=== PATIENT | male | born 1960 | race Two or more races ===

== ENCOUNTER 2020-12-24 10:12 | Emergency (ER) | payer OTHER ==
[~2020-12-24] VITALS: Ht 167.6 cm; Wt 70.3 kg
[2020-12-24] MEDS ORDERED: KETO10TA2 PO (16:11)
[2020-12-24] MEDS ORDERED: TAMS0.4C PO (16:11)
== END 2020-12-24 16:19 | disposition home or self-care (01) ==
LOC: ER 10:12
DX: N20.0 Calculus of kidney (principal); K57.90 Diverticulosis of intestine, part unspecified, without perforation or abscess without bleeding; R10.32 Left lower quadrant pain; Z03.818 Encounter for observation for suspected exposure to other biological agents ruled out

== ENCOUNTER 2022-11-08 15:40 | Outpatient (CLI) | payer OTHER ==
[~2022-11-08 15:40] MED LIST: KETO10TA2 PO; TAMS0.4C PO
== END 2022-11-08 15:50 | disposition home or self-care (01) ==
LOC: TOM 15:40
PROVIDERS: ATTEND Internal Medicine
DX: R10.84 Generalized abdominal pain (principal)